=== PATIENT | male | born 1970 | race African-American/Black ===

== ENCOUNTER 2019-12-10 09:35 | Outpatient (CLI) | payer OTHER, SELFPAY ==
[2019-12-10 10:36] LABS: Basophils Percent Auto 0.4 % (0.2-1.2); Eosinophils Absolute Auto 0.2 K/mm3 (0-0.3); Eosinophils Percent Auto 2.9 % (0-4.4); Hematocrit 49.5 % (42.0-52.0); Hemoglobin 16.8 g/dL (14.0-18.0); Immature Granulocyte Absolute 0.02 K/mm3 (0.00-0.031); Immature Granulocyte Percent A 0.2 % (0-0.5); Lymphocytes Percent Auto 27.4 % (18.3-44.2); Mean Corpuscular HGB Conc 33.9 g/dl (32-36); Mean Corpuscular Hemoglobin 28.8 pg (26-34); Mean Corpuscular Volume 84.9 fl (80-100); Mean Platelet Volume 9.3 fl (7.4-10.4); Monocytes Absolute Auto 0.5 K/mm3 (0.1-0.6); Neutrophils Absolute Auto 5.1 K/mm3 (1.3-6.7); Neutrophils Percent Auto 63.1 % (45.5-73.1); Platelet Count Result 209 k/mm3 (150-375); Red Blood Count 5.83 M/mm3 (4.6-6.20); Red Cell Distribution Width 13.1 % (11.5-14.5)
--- NOTE | 2019-12-10 10:36 | ECG_ITS ---
Measurements Intervals [place] Rate: 90 P: 68 HI: 167 QRS: 26 QRSD: 89 T: 50 QT: 337 QTc: 414 Interpretive Statements SINUS RHYTHM EARLY PRECORDIAL R/S TRANSITION BASELINE ARTIFACT- II, III, AVF BORDERLINE ECG Electronically Signed On 12-10-2019 11:12:13 CDT by Lev De Leon D.O.
[2019-12-10 10:46] LABS: INR 1.1
[2019-12-10 10:47] LABS: Partial Thromboplastin Time 28.1 SECONDS (22.3-36.8)
[2019-12-10 10:53] LABS: Alanine Aminotransferase 17 U/L (4-50); Albumin Level 4.7 g/dL (3.5-5.1); Alkaline Phosphatase 68 U/L (38-126); Aspartate Amino Transferase 25 U/L (17-59); Bilirubin,Total 1.5 mg/dL (0.2-1.3); Blood Urea Nitrogen 12 mg/dL (9-20); Calcium 9.9 mg/dL (8.4-10.2); Carbon Dioxide 27 mmol/L (22-30); Chloride 101 mmol/L (98-107); Estimated Glomerular Filt Rate > 60; Glucose 152 mg/dL (75-110); Potassium 4.3 mmol/L (3.4-5.0); Sodium 138 mmol/L (137-145)
[2019-12-10 11:25] LABS: Vitamin D 25 Hydroxy 13.3 ng/mL
[2019-12-10 11:31] LABS: HIV 1/2 Ab P24 Ag Result Negative (Negative)
[2019-12-10 11:37] LABS: Hepatitis B Surface Antigen Negative (Negative)
[2019-12-10 11:42] LABS: Erythrocyte Sedimentation Rate 28 mm/hr (0-20)
[2019-12-10 11:43] LABS: HAV RESULT Negative (Negative); Hepatitis B Core IgM Result Negative (Negative)
[2019-12-10 11:55] LABS: Hepatitis C Virus Antibody Negative (Negative)
== END 2019-12-10 09:36 | disposition home or self-care (01) ==
PROVIDERS: PCP Family Medicine Sports Medicine; Visit Provider Family Medicine Sports Medicine
DX: Z01.818 Encounter for other preprocedural examination (principal); M54.2 Cervicalgia
CPT/HCPCS: 36415; 80053; 80074; 82306; 85025; 85610; 85652; 85730; 86703; 93005; G0432

== ENCOUNTER 2019-12-24 10:49 | Outpatient (CLI) | payer OTHER, SELFPAY ==
[2019-12-24 11:44] LABS: Add Urine Microscopic? NO; Appearance Urine Clear (Clear); Bilirubin Urine Negative (Negative); Blood Urine Negative (Negative); Color Urine Straw (Yellow); Glucose Urine UA Negative (Negative); Ketones Urine Negative (Negative); Leukocyte Esterase Ur Negative LEU/UL (NEGATIVE); Nitrate Urine Negative (Negative); Protein Urine Negative (Negative); Specific Grav Ur 1.012 (1.001-1.035); Urobilinogen Urine Negative mg/dL (<2.0)
[2019-12-24 11:51] LABS: Hemoglobin A1C 10.6 % (<5.7)
== END 2019-12-24 10:50 | disposition home or self-care (01) ==
PROVIDERS: PCP Family Medicine Sports Medicine; Visit Provider Family Medicine Sports Medicine
DX: E11.9 Type 2 diabetes mellitus without complications (principal); Z01.818 Encounter for other preprocedural examination
CPT/HCPCS: 36415; 81003; 83036

== ENCOUNTER 2020-02-22 09:47 | Outpatient (CLI) | payer OTHER, SELFPAY ==
[2020-02-22 10:40] LABS: Hemoglobin A1C 7.2 % (<5.7)
[2020-02-22 10:43] LABS: Glucose 126 mg/dL (75-110)
[2020-02-22 11:14] LABS: Thyroid Stimulating Hormone < 0.015 uIU/mL (0.465-4.680)
== END 2020-02-22 09:48 | disposition home or self-care (01) ==
PROVIDERS: PCP Family Medicine Sports Medicine; Visit Provider Family Medicine Sports Medicine
DX: E11.9 Type 2 diabetes mellitus without complications (principal); E03.9 Hypothyroidism, unspecified
CPT/HCPCS: 36415; 82947; 83036; 84443

== ENCOUNTER 2020-03-20 13:21 | Outpatient (CLI) | payer SELFPAY ==
[2020-03-20 14:20] LABS: Thyroid Stimulating Hormone 0.062 uIU/mL (0.465-4.680)
== END 2020-03-20 13:22 | disposition home or self-care (01) ==
PROVIDERS: PCP Family Medicine Sports Medicine; Visit Provider Family Medicine Sports Medicine
DX: R94.6 Abnormal results of thyroid function studies (principal)
CPT/HCPCS: 36415; 84443

== ENCOUNTER 2020-07-19 10:28 | Outpatient (CLI) | payer OTHER, BC, SELFPAY ==
[2020-07-19 11:41] LABS: Hematocrit 44.6 % (42.0-52.0); Hemoglobin 15.3 g/dL (14.0-18.0); Mean Corpuscular HGB Conc 34.3 g/dl (32-36); Mean Corpuscular Hemoglobin 30.4 pg (26-34); Mean Corpuscular Volume 88.7 fl (80-100); Mean Platelet Volume 9.2 fl (7.4-10.4); Platelet Count Result 181 k/mm3 (150-375); Red Blood Count 5.03 M/mm3 (4.6-6.20); Red Cell Distribution Width 13.2 % (11.5-14.5); White Blood Count 7.8 K/mm3 (4.5-10.0)
[2020-07-19 11:51] LABS: Add Urine Microscopic? NO; Appearance Urine Clear (Clear); Bilirubin Urine Negative (Negative); Blood Urine Negative (Negative); Color Urine Straw (Yellow); Glucose Urine UA Negative (Negative); Ketones Urine Negative (Negative); Leukocyte Esterase Ur Negative LEU/UL (NEGATIVE); Nitrate Urine Negative (Negative); Protein Urine Negative (Negative); Urobilinogen Urine Negative mg/dL (<2.0)
[2020-07-19 11:58] LABS: Partial Thromboplastin Time 27.5 SECONDS (22.3-36.8); Prothrombin Time 13.4 Seconds (11.1-14.7)
[2020-07-19 12:12] LABS: Alanine Aminotransferase 23 U/L (4-50); Alkaline Phosphatase 55 U/L (38-126); Anion Gap 4 mmol/L (8-16); Aspartate Amino Transferase 28 U/L (17-59); Bilirubin,Total 1.3 mg/dL (0.2-1.3); Blood Urea Nitrogen 10 mg/dL (9-20); Carbon Dioxide 28 mmol/L (22-30); Chloride 103 mmol/L (98-107); Estimated Glomerular Filt Rate > 60; Glucose 124 mg/dL (75-110); Potassium 3.9 mmol/L (3.4-5.0); Sodium 135 mmol/L (137-145)
[2020-07-19 12:14] LABS: Erythrocyte Sedimentation Rate 16 mm/hr (0-20)
== END 2020-07-19 10:29 | disposition home or self-care (01) ==
PROVIDERS: PCP Family Medicine Sports Medicine; Visit Provider Family Medicine Sports Medicine
DX: Z01.812 Encounter for preprocedural laboratory examination (principal)
CPT/HCPCS: 36415; 80053; 81003; 85027; 85610; 85652; 85730

== ENCOUNTER 2021-11-07 14:43 | Outpatient (CLI) | payer BC, SELFPAY ==
[2021-11-07 15:07] LABS: Basophils Percent Auto 0.5 % (0.2-1.2); Eosinophils Absolute Auto 0.2 K/mm3 (0-0.3); Eosinophils Percent Auto 2.9 % (0-4.4); Hemoglobin 15.8 g/dL (14.0-18.0); Immature Granulocyte Absolute 0.03 K/mm3 (0.00-0.031); Immature Granulocyte Percent A 0.4 % (0-0.5); Lymphocytes Absolute Auto 2.21 K/mm3 (0.9-3.2); Lymphocytes Percent Auto 26.7 % (18.3-44.2); Mean Corpuscular HGB Conc 33.6 g/dl (32-36); Mean Corpuscular Volume 89.2 fl (80-100); Monocytes Absolute Auto 0.5 K/mm3 (0.1-0.6); Monocytes Percent Auto 5.4 % (2.6-8.5); Neutrophils Absolute Auto 5.3 K/mm3 (1.3-6.7); Neutrophils Percent Auto 64.1 % (45.5-73.1); Platelet Count Result 197 k/mm3 (150-375); Red Blood Count 5.27 M/mm3 (4.6-6.20); Red Cell Distribution Width 12.7 % (11.5-14.5); White Blood Count 8.3 K/mm3 (4.5-10.0)
[2021-11-07 15:37] LABS: Alanine Aminotransferase 37 U/L (6-50); Albumin Level 4.2 g/dL (3.5-5.1); Alkaline Phosphatase 80 U/L (38-126); Anion Gap 5 mmol/L (8-16); Aspartate Amino Transferase 28 U/L (17-59); Bilirubin,Total 1.8 mg/dL (0.2-1.3); Blood Urea Nitrogen 7 mg/dL (9-20); Carbon Dioxide 26 mmol/L (22-30); Chloride 104 mmol/L (98-107); Cholesterol 120 mg/dL (0-200); Estimated Glomerular Filt Rate > 60; Glucose 165 mg/dL (65-110); HDL Direct 46 mg/dL; Potassium 3.9 mmol/L (3.4-5.0); Sodium 135 mmol/L (137-145); Triglycerides 80 mg/dL (<150)
[2021-11-07 15:43] LABS: Hemoglobin A1C 11.2 % (<5.7)
[2021-11-07 15:50] LABS: LDL Cholesterol Direct 53 mg/dL
[2021-11-07 16:31] LABS: Vitamin D 25 Hydroxy 34.2 ng/mL
[2021-11-07 16:49] LABS: Folic Acid 10.9 ng/mL (2.76->20)
== END 2021-11-07 14:44 | disposition home or self-care (01) ==
PROVIDERS: PCP Family Medicine Sports Medicine; Visit Provider Family Medicine Sports Medicine
DX: E78.5 Hyperlipidemia, unspecified (principal); E03.9 Hypothyroidism, unspecified; I10 Essential (primary) hypertension; E11.9 Type 2 diabetes mellitus without complications; Z00.00 Encounter for general adult medical examination without abnormal findings
CPT/HCPCS: 36415; 80053; 80061; 82306; 82607; 82746; 83036; 84443; 85025

== ENCOUNTER 2022-10-10 10:52 | Emergency (ER) | payer OTHER, SELFPAY ==
[2022-10-10 11:08] VITALS: BP 135/82; PULSE 74; RESP 18; TEMP 37; O2SAT 100
[2022-10-10 11:12] LABS: Glucose Point of Care 347 mg/dl (65-105)
[2022-10-10] MEDS: SODIUM CHLORIDE 0.9% IV 1,000 ML 999 ML IV CONT (11:32)
[2022-10-10 11:33] LABS: Basophils Absolute Auto 0.1 K/mm3 (0.0-0.1); Basophils Percent Auto 0.7 % (0.2-1.2); Eosinophils Absolute Auto 0.3 K/mm3 (0-0.3); Eosinophils Percent Auto 3.4 % (0-4.4); Hematocrit 51.3 % (42.0-52.0); Hemoglobin 16.9 g/dL (14.0-18.0); Immature Granulocyte Absolute 0.02 K/mm3 (0.00-0.031); Immature Granulocyte Percent A 0.3 % (0-0.5); Lymphocytes Absolute Auto 2.42 K/mm3 (0.9-3.2); Lymphocytes Percent Auto 31.5 % (18.3-44.2); Mean Corpuscular HGB Conc 32.9 g/dl (32-36); Mean Corpuscular Hemoglobin 29.9 pg (26-34); Mean Corpuscular Volume 90.6 fl (80-100); Mean Platelet Volume 9.8 fl (7.4-10.4); Monocytes Absolute Auto 0.5 K/mm3 (0.1-0.6); Monocytes Percent Auto 6.8 % (2.6-8.5); Neutrophils Absolute Auto 4.4 K/mm3 (1.3-6.7); Neutrophils Percent Auto 57.3 % (45.5-73.1); Platelet Count Result 168 k/mm3 (150-375); Red Blood Count 5.66 M/mm3 (4.6-6.20); Red Cell Distribution Width 13.1 % (11.5-14.5); White Blood Count 7.7 K/mm3 (4.5-10.0)
--- NOTE | 2022-10-10 11:38 | ED.RECABL ---
HPI - Recheck/Abnormal Lab/Rx General Chief Complaint: Recheck/Abnormal Lab/Rx Stated Complaint: blood sugar high Time Seen by Provider: 10/10/22 11:12 History of Present Illness HPI narrative: Patient is a 52-year-old male with a history of type 2 diabetes here due to elevated blood sugars. Patient states that his blood sugars have been running in the 300s at home over the past several days. Today he took his blood sugar and the glucometer read over 600. He contacted his PMD who recommended ED evaluation. Patient feels well today although he has been experiencing intermittent lightheadedness and fatigue for the past several months. His diabetes was previously managed well with Ozempic and metformin, however patient lost his insurance and was off of those meds for several months. He started Jardiance and metformin began about 2 months ago but his sugars have not been well controlled. Previously was on insulin when he was first diagnosed with diabetes in 2010. Related Data Home Medications Medication Instructions Recorded Confirmed glimepiride 4 mg tablet 4 mg PO DAILY 10/10/22 Allergies Allergy/AdvReac Type Severity Reaction Status Date / Time No Known Allergies Allergy Verified 10/10/22 11:18 Review of Systems Review of Systems: Gen: Denies fevers or chills Eyes: Denies eye pain or visual change ENT: Denies congestion Respiratory: Denies shortness of breath or cough CV: Denies chest pain or palpitations GI: Denies abdominal pain nausea, emesis or diarrhea : denies burning, urgency, frequency or hematuria Musculoskeletal: Denies back pain or muscle pain Neuro: Denies numbness, tingling, weakness or focal weakness Skin: Denies rash Except as documented, all other systems reviewed and negative PMFSH Social History Social History Smoking status: Never smoker Alcohol intake: current Exam Narrative: APPEARANCE: Well appearing, no pain in distress, well-nourished. Head: Normocephalic and atraumatic. EYES: PERRLA/EOMI, conjunctivae clear NOSE: No nasal drainage EARS: External ear normal in appearance THROAT: Oropharynx is clear. Mucous membranes are moist. NECK: Supple. No adenopathy, no masses. RESPIRATORY: Airway patent, respirations nonlabored. Clear to auscultation bilaterally, no rales, rhonchi, wheezing. CARDIOVASCULAR: Regular rate and rhythm without murmurs, rubs, or gallops. ABDOMINAL: Normoactive bowel sounds. Soft, nontender, nondistended. No rebound tenderness or guarding. MUSCULOSKELETAL: Extremities are warm and well-perfused. Moves all extremities well. No edema. NEURO: Normal speech. No focal neurologic deficits. SKIN: Skin is warm and dry. No rashes. PSYCHIATRIC: Normal affect/mood.. Course Vital Signs Vital signs: Vital Signs Temperature 98.6 F 10/10/22 11:08 Pulse Rate 74 10/10/22 11:08 Respiratory Rate 18 10/10/22 11:08 Blood Pressure 135/82 10/10/22 11:08 Pulse Oximetry 100 10/10/22 11:08 Oxygen Delivery Room Air 10/10/22 11:08 Temperature 98.6 F 10/10/22 11:08 Pulse Rate 84 10/10/22 14:27 Respiratory Rate 16 10/10/22 14:27 Blood Pressure 129/86 10/10/22 14:27 Pulse Oximetry 99 10/10/22 14:27 Oxygen Delivery Room Air 10/10/22 11:08 MDM - Recheck/Abnormal Lab/Rx MDM Narrative Medical decision making narrative: 52-year-old male with a history of diabetes here for evaluation of elevated blood sugars at home. He is asymptomatic from this. Accu-Chek in triage was 371. Patient was given fluids with improvement of his sugars to 270. Normal anion gap, bicarb is normal, no ketones in the urine to suggest DKA. Spoke with patient's PMD who recommends starting insulin in addition to his metformin. Patient has been on insulin in the past discomfortable with this plan. Discharged home to follow-up, we discussed return precautions. Lab Data 10/10/22 11:25 10/10/22 11:58 Labs: Lab Results
[2022-10-10 11:49] LABS: Beta-Hydroxybutyrate/Acetoacetate 0.28 mmol/L (0.02-0.27)
[2022-10-10 12:17] LABS: Alanine Aminotransferase 35 U/L (6-50); Albumin Level 3.9 g/dL (3.5-5.1); Alkaline Phosphatase 70 U/L (38-126); Anion Gap 7 mmol/L (8-16); Aspartate Amino Transferase 28 U/L (17-59); Bilirubin,Total 1.4 mg/dL (0.2-1.3); Blood Urea Nitrogen 7 mg/dL (9-20); Calcium 8.8 mg/dL (8.4-10.2); Carbon Dioxide 28 mmol/L (22-30); Chloride 99 mmol/L (98-107); Estimated Glomerular Filt Rate > 60; Glucose 344 mg/dL (65-110); Potassium 4.2 mmol/L (3.4-5.0); Sodium 134 mmol/L (137-145)
[2022-10-10 13:02] LABS: Appearance Urine Clear (Clear); Bilirubin Urine Negative (Negative); Blood Urine Negative (Negative); Color Urine Yellow (Yellow); Glucose Urine UA 3+ mg/dL (Negative); Ketones Urine Negative (Negative); Leukocyte Esterase Ur Negative LEU/UL (Negative); Nitrate Urine Negative (Negative); Protein Urine Negative (Negative); pH Urine 6.5 (5.0-9.0)
[2022-10-10 13:03] LABS: Specific Grav Ur 1.043 (1.001-1.035)
[2022-10-10 13:04] LABS: Add Urine Microscopic? NO
[2022-10-10 13:56] LABS: Glucose Point of Care 270 mg/dl (65-105)
[2022-10-10 14:27] VITALS: BP 129/86; PULSE 84; RESP 16; O2SAT 99
== END 2022-10-10 14:28 | disposition home or self-care (01) ==
PROVIDERS: Emergency Provider Physician Assistant; PCP Family Medicine Sports Medicine
DX: E11.65 Type 2 diabetes mellitus with hyperglycemia (principal); Z79.84 Long term (current) use of oral hypoglycemic drugs
CPT/HCPCS: 36415; 80053; 81003; 82010; 82948; 85025; 96360; 99283; J7030

== ENCOUNTER 2022-10-11 17:02 | Emergency (ER) | payer OTHER, SELFPAY ==
[2022-10-11 17:05] VITALS: BP 149/87; PULSE 84; RESP 16; TEMP 36.6; O2SAT 99
[2022-10-11 17:11] LABS: Glucose Point of Care 495 mg/dl (65-105)
--- NOTE | 2022-10-11 17:32 | ED.RECABL ---
HPI - Recheck/Abnormal Lab/Rx General Chief Complaint: Recheck/Abnormal Lab/Rx Stated Complaint: high blood sugar Time Seen by Provider: 10/11/22 17:20 Source: patient and old records reviewed Mode of arrival: ambulatory Limitations: no limitations History of Present Illness HPI narrative: Patient is a 52-year-old male who presents ED with report of elevated blood sugar. Patient reports a history of type 2 diabetes mellitus, currently on metformin and Jardiance with poor blood sugar control, had previously been on insulin. Patient was seen in the ED yesterday for elevated blood sugars, no signs of DKA were noted. Discussion was had with patient's primary care doctor and recommended he start insulin NPH, 10 units SQ daily. Patient has a follow-up appointment with his primary on Friday. He states the insulin was out of stock or not ready at his pharmacy today. Patient has been fatigued today and took a nap. When he woke up he still felt fatigued and groggy, so he decided to come here. His blood sugars were greater than 600 at home. BG upon arrival 495. Patient denies any chest pain, shortness breath, nausea, vomiting, abdominal pain. Related Data Home Medications Medication Instructions Recorded Confirmed glimepiride 4 mg tablet 4 mg PO DAILY 10/10/22 Allergies Allergy/AdvReac Type Severity Reaction Status Date / Time No Known Allergies Allergy Verified 10/10/22 11:18 Review of Systems Review of Systems: CONSTITUTIONAL: Reports fatigue. Denies fever, chills, or sweats. CARDIOVASCULAR: Denies chest pain. RESPIRATORY: Denies dyspnea. GASTROINTESTINAL: Denies abdominal pain, nausea, vomiting. GENITOURINARY: Denies dysuria or hematuria. NEUROLOGIC: See HPI. All systems reviewed & are unremarkable except as noted in HPI and below PMFSH Past Medical History Medical History Type 2 diabetes mellitus with hyperglycemia Surgical History Surgical History No pertinent past surgical history Social History Social History Smoking status: Never smoker Alcohol intake: current Exam Narrative: GENERAL: Well appearing, well-nourished, non-toxic, in no acute distress. HEAD: Normocephalic, atraumatic. NECK: Supple. No adenopathy, no masses. RESPIRATORY: Airway patent, respirations nonlabored. Clear to auscultation bilaterally, no rales, rhonchi, wheezing. CARDIOVASCULAR: Regular rate and rhythm without murmurs, rubs, or gallops. Radial pulses 2+ and equal bilaterally. ABDOMINAL: Soft, nontender, nondistended, no hepatosplenomegaly. Normoactive BS. MUSCULOSKELETAL: Moves all extremities. Strength/ROM intact without gross deformities. SKIN: Warm, dry, normal color. No rashes. NEURO: A&O X3. Speech clear. Cranial nerves II-XII grossly intact. Steady gait. No ataxic movements. PSYCHIATRIC: Appropriate mood and affect. Normal interaction. Course Vital Signs Vital signs: Vital Signs Temperature 97.9 F 10/11/22 17:05 Pulse Rate 84 10/11/22 17:05 Respiratory Rate 16 10/11/22 17:05 Blood Pressure 149/87 H 10/11/22 17:05 Pulse Oximetry 99 10/11/22 17:05 Oxygen Delivery Room Air 10/11/22 17:05 Temperature 97.9 F 10/11/22 17:05 Pulse Rate 68 10/11/22 20:43 Respiratory Rate 18 10/11/22 20:43 Blood Pressure 132/93 H 10/11/22 20:43 Pulse Oximetry 100 10/11/22 20:43 Oxygen Delivery Room Air 10/11/22 17:05 MDM - Recheck/Abnormal Lab/Rx MDM Narrative Medical decision making narrative: Patient presented to ED with elevated blood sugars, was supposed to be started on insulin, but was unable to pick this up from the pharmacy today and returned here. Vitals stable upon arrival. Blood glucose upon arrival 495. Patient given 2L fluids, blood glucose improved to 317. CMP with normal bicarb, no an
[2022-10-11] MEDS: SODIUM CHLORIDE 0.9% IV 1,000 ML 999 ML IV CONT ×2 (17:47→18:18)
[2022-10-11 17:51] LABS: Basophils Percent Auto 0.5 % (0.2-1.2); Eosinophils Absolute Auto 0.3 K/mm3 (0-0.3); Eosinophils Percent Auto 3.7 % (0-4.4); Hematocrit 49.7 % (42.0-52.0); Hemoglobin 16.6 g/dL (14.0-18.0); Immature Granulocyte Absolute 0.02 K/mm3 (0.00-0.031); Immature Granulocyte Percent A 0.3 % (0-0.5); Lymphocytes Absolute Auto 2.05 K/mm3 (0.9-3.2); Lymphocytes Percent Auto 28.1 % (18.3-44.2); Mean Corpuscular HGB Conc 33.4 g/dl (32-36); Mean Corpuscular Hemoglobin 29.6 pg (26-34); Mean Corpuscular Volume 88.8 fl (80-100); Mean Platelet Volume 9.2 fl (7.4-10.4); Monocytes Absolute Auto 0.5 K/mm3 (0.1-0.6); Monocytes Percent Auto 7.3 % (2.6-8.5); Neutrophils Absolute Auto 4.4 K/mm3 (1.3-6.7); Neutrophils Percent Auto 60.1 % (45.5-73.1); Platelet Count Result 170 k/mm3 (150-375); Red Cell Distribution Width 13.1 % (11.5-14.5); White Blood Count 7.3 K/mm3 (4.5-10.0)
[2022-10-11 17:52] LABS: Appearance Urine Clear (Clear); Bilirubin Urine Negative (Negative); Blood Urine Negative (Negative); Color Urine Yellow (Yellow); Glucose Urine UA 3+ mg/dL (Negative); Ketones Urine Negative (Negative); Leukocyte Esterase Ur Negative LEU/UL (Negative); Nitrate Urine Negative (Negative); Protein Urine Negative (Negative); Urobilinogen Urine 0.2 mg/dL (<2.0); pH Urine 5.5 (5.0-9.0)
[2022-10-11 18:04] LABS: Alanine Aminotransferase 36 U/L (6-50); Albumin Level 4.4 g/dL (3.5-5.1); Alkaline Phosphatase 80 U/L (38-126); Anion Gap 9 mmol/L (8-16); Aspartate Amino Transferase 28 U/L (17-59); Bilirubin,Total 1.4 mg/dL (0.2-1.3); Blood Urea Nitrogen 7 mg/dL (9-20); Calcium 9.1 mg/dL (8.4-10.2); Carbon Dioxide 24 mmol/L (22-30); Chloride 97 mmol/L (98-107); Estimated CRCL calculation 116 ml/min; Estimated Glomerular Filt Rate > 60; Glucose 448 mg/dL (65-110); Potassium 4.1 mmol/L (3.4-5.0); Sodium 130 mmol/L (137-145)
[2022-10-11 18:05] LABS: Specific Grav Ur 1.038 (1.001-1.035)
[2022-10-11 18:06] LABS: Add Urine Microscopic? NO
[2022-10-11 18:19] VITALS: BP 132/88; PULSE 67; RESP 18; O2SAT 98
[2022-10-11 20:19] LABS: Glucose Point of Care 317 mg/dl (65-105)
--- NOTE | 2022-10-11 20:19 | PC.NURSE ---
POC glucose recheck after fluid bolus 317. Kady RAMIREZ notified.
[2022-10-11] MEDS: INSULIN ASPART (*BKC) 100 UNITS/ML 6 UNITS SUB-Q (20:41)
[2022-10-11 20:43] VITALS: BP 132/93; PULSE 68; RESP 18; O2SAT 100
== END 2022-10-11 21:09 | disposition home or self-care (01) ==
PROVIDERS: Emergency Provider Physician Assistant; PCP Family Medicine Sports Medicine
DX: E11.65 Type 2 diabetes mellitus with hyperglycemia (principal); Z79.84 Long term (current) use of oral hypoglycemic drugs
CPT/HCPCS: 36415; 80053; 81003; 82948; 85025; 96360; 96361; 99283; J1815; J7030

== ENCOUNTER 2024-01-30 17:15 | Emergency (ER) | payer OTHER, SELFPAY ==
--- NOTE | ~2024-01-30 | XR_ITS ---
EXAMINATION: XR chest 2V DATE: 01/30/2024 17:52 INDICATION: Cough and wheezing. Shortness of breath. TECHNIQUE: Frontal and lateral views of the chest were obtained. COMPARISON: None. FINDINGS: There is elevation of left hemidiaphragm. There is mild atelectasis at left lung base. No p leural effusion or pneumothorax. The heart size is normal. There are disc replacements in cervical sp ine. IMPRESSION: 1. Elevation of left hemidiaphragm with mild atelectasis at left lung base. Reviewed, dictated and finalized at location A.
--- NOTE | 2024-01-30 17:29 | ED.URI ---
HPI - URI/Sore Throat General Chief Complaint: Upper Respiratory Infection Stated Complaint: Flu Like symthoms Time Seen by Provider: 01/30/24 17:29 Source: patient Mode of arrival: ambulatory Limitations: no limitations History of Present Illness HPI Narrative: 54 yo M presents with c/o cough, chest and nasal congestion, fatigue for 4 days. Afebrile. Taking OTC dayquil/nyquil cold and flu. reports intermittent headaches and chills. Denies nausea vomiting diarrhea. Denies chest pain or shortness breath. Reports decreased urination. Has only urinated approximately 3 times today. States he has low back pain but this is chronic for him. No other urinary symptoms. All systems reviewed and negative except as noted above. Related Data Home Medications Medication Instructions Recorded Confirmed glimepiride 4 mg tablet 4 mg PO DAILY 10/10/22 01/30/24 albuterol sulfate 90 mcg/actuation 2 puff inhalation PRN PRN 01/30/24 01/30/24 aerosol inhaler Shortness Of Breath Or Wheezing atorvastatin 20 mg tablet 20 mg PO DAILY 01/30/24 01/30/24 blood-glucose sensor (FreeStyle 01/30/24 01/30/24 Hudson 3 Sensor device) levothyroxine 125 mcg tablet 125 mcg PO DAILY 01/30/24 01/30/24 metformin 500 mg tablet,extended 1,000 mg PO BID 01/30/24 01/30/24 release 24 hr pioglitazone 45 mg tablet 45 mg PO DAILY 01/30/24 01/30/24 semaglutide 0.25 mg or 0.5 mg (2 0.5 mg subcut WEEKLY 01/30/24 01/30/24 mg/3 mL) subcutaneous pen injector (Ozempic) Allergies Allergy/AdvReac Type Severity Reaction Status Date / Time No Known Allergies Allergy Verified 01/30/24 17:22 Review of Systems Review of Systems: CONSTITUTIONAL: Denies fever . Reports chills, or sweats. Reports fatigue. EYES: Denies visual changes, redness, or discharge. ENT: reports rhinorrhea, congestion. Denies sore throat, or otalgia. CARDIOVASCULAR: Denies chest pain, palpitations, or edema. RESPIRATORY: reports cough. Denies dyspnea. GASTROINTESTINAL: Denies abdominal pain, nausea, vomiting, or diarrhea. GENITOURINARY: Denies dysuria or hematuria. reports decreased urine output. SKIN: Denies rash or itching. MUSCULOSKELETAL: Denies back pain, joint pain, or myalgia. NEUROLOGIC: Denies headache, numbness, or weakness. PSYCHIATRIC: Denies anxiety or depression. All other systems reviewed are negative, except as documented in HPI. [facility] Past Medical History Medical History Type 2 diabetes mellitus with hyperglycemia Surgical History Surgical History No pertinent past surgical history Social History Social History Smoking status: Never smoker Alcohol intake: current Comments At time of signature, agree with nursing past medical, surgical, social and family history. There is no relevant family history pertinent to the presenting complaint. Exam Narrative: GENERAL: This is a well-nourished, well-developed patient, Patient ill-appearing but in no acute distress HEAD: normocephalic, atraumatic. EYES: PERRL. Sclera clear/white. Vision is grossly intact. EARS: External ears normal, auditory canals clear and without drainage, TMs normal without perforation. Hearing grossly intact. NOSE: External nose normal with mild nasal congestion, clear nasal drainage with erythema to bilateral nares THROAT: Mucous membranes moist, posterior pharynx clear. NECK: Neck supple, non-tender without lymphadenopathy, masses or thyromegaly. CARDIOVASCULAR: Regular rate and rhythm without murmurs, gallops, or rubs. RESPIRATORY: decreased in lower lower ribs otherwise clear Breath sounds equal bilaterally. No wheezes, rales, or rhonchi. SKIN: warm, Dry, intact with no suspicious lesions or rash, good texture and turgor. NEURO: awake, alert, and oriented to person, place and time. There were no o
[2024-01-30 17:30] VITALS: BP 139/88; PULSE 117; RESP 15; TEMP 36.9; O2SAT 99
[2024-01-30 17:44] LABS: EDINFLUASCREEN Negative (Negative); EDINFLUBSCREEN Negative (Negative)
[2024-01-30 19:34] LABS: Glucose Point of Care 222 mg/dl (65-105)
== END 2024-01-30 19:34 | disposition home or self-care (01) ==
PROVIDERS: Emergency Provider Nurse Practitioner Family
DX: J06.9 Acute upper respiratory infection, unspecified (principal); R34 Anuria and oliguria; Z20.822 Contact with and (suspected) exposure to COVID-19; E11.9 Type 2 diabetes mellitus without complications; Z79.84 Long term (current) use of oral hypoglycemic drugs
CPT/HCPCS: 71046; 82948; 87426; 87804; 99213; G0463

== ENCOUNTER 2024-02-03 10:29 | Emergency (ER) | payer OTHER, SELFPAY ==
--- NOTE | ~2024-02-03 | XR_ITS ---
XR chest 2V Ordering provider: Alanis Wood MD History: 54 years Male with . weak INCREASED H.R. COUGH FEVER . Comparison: January 30, 2024 FINDINGS: MEDIASTINUM: The cardiac silhouette is not enlarged. Elevation of the left hemidiaphragm. LUNGS: No infiltrates, effusions or pneumothorax. Minimal atelectatic changes in the left lung base. OTHER: No free air under the diaphragm. Degenerative spine. IMPRESSION: Chronic atelectatic changes in the left lung base. Otherwise, no acute cardiopulmonary pathology Reviewed, dictated and finalized at location A. IMPRESSION: Chronic atelectatic changes in the left lung base. Otherwise, no acute cardiopu lmonary pathology
[2024-02-03 10:34] VITALS: BP 125/87; PULSE 111; RESP 22; TEMP 37; O2SAT 96
--- NOTE | 2024-02-03 10:34 | PC.NURSE ---
Pt reports last tylenol intake was 0300
--- NOTE | 2024-02-03 11:39 | ECG_ITS ---
Test Date: 2024-02-03 11:57:24 Measurements Intervals [place] Rate: 94 P: 55 DC: 140 QRS: 31 QRSD: 135 T: 31 QT: 350 QTc: 440 Interpretive Statements SINUS RHYTHM RIGHT BUNDLE BRANCH BLOCK BASELINE ARTIFACT- I, III, AVR, AVL, AVF ABNORMAL ECG No previous ECG available for comparison Electronically Signed On 02-03-2024 12:02:23 CDT by Lev De Leon D.O.
[2024-02-03 12:04] VITALS: PULSE 93
[2024-02-03 12:07] VITALS: BP 129/93; PULSE 91; RESP 20; TEMP 36.8; O2SAT 100
--- NOTE | 2024-02-03 12:09 | PC.NURSE ---
pt made aware we need urine sample. pt unable to go at this time. declining straight cath.
[2024-02-03 12:17] LABS: Basophils Percent Auto 0.3 % (0.2-1.2); Eosinophils Percent Auto 0.2 % (0-4.4); Hematocrit 45.6 % (42.0-52.0); Hemoglobin 15.4 g/dL (14.0-18.0); Immature Granulocyte Absolute 0.07 K/mm3 (0.00-0.031); Immature Granulocyte Percent A 0.6 % (0-0.5); Lymphocytes Absolute Auto 1.53 K/mm3 (0.9-3.2); Lymphocytes Percent Auto 13.7 % (18.3-44.2); Mean Corpuscular HGB Conc 33.8 g/dl (32-36); Mean Corpuscular Hemoglobin 29.8 pg (26-34); Mean Corpuscular Volume 88.2 fl (80-100); Mean Platelet Volume 8.8 fl (7.4-10.4); Monocytes Absolute Auto 1.8 K/mm3 (0.1-0.6); Monocytes Percent Auto 15.9 % (2.6-8.5); Neutrophils Absolute Auto 7.7 K/mm3 (1.3-6.7); Neutrophils Percent Auto 69.3 % (45.5-73.1); Platelet Count Result 211 k/mm3 (150-375); Red Blood Count 5.17 M/mm3 (4.6-6.20); Red Cell Distribution Width 12.1 % (11.5-14.5); White Blood Count 11.2 K/mm3 (4.5-10.0)
[2024-02-03 12:30] LABS: Alanine Aminotransferase 27 U/L (6-50); Albumin Level 4.2 g/dL (3.5-5.1); Alkaline Phosphatase 83 U/L (38-126); Anion Gap 10 mmol/L (4-12); Aspartate Amino Transferase 36 U/L (17-59); Bilirubin,Total 1.5 mg/dL (0.2-1.3); Blood Urea Nitrogen 13 mg/dL (9-20); Calcium 9.3 mg/dL (8.4-10.2); Carbon Dioxide 30 mmol/L (22-30); Chloride 90 mmol/L (98-107); Estimated CRCL calculation 84 ml/min; Estimated Glomerular Filt Rate > 60; Glucose 234 mg/dL (65-110); Potassium 4.4 mmol/L (3.4-5.0); Sodium 130 mmol/L (137-145)
[2024-02-03] MEDS: SODIUM CHLORIDE 0.9% IV 1,000 ML 999 ML IV CONT (13:20)
[2024-02-03 13:42] LABS: Lactic Acid Reflex 1.5 mmol/L (0.7-2.0)
[2024-02-03 13:54] LABS: Troponin I < 0.012 ng/mL (0.000-0.034)
[2024-02-03 14:08] LABS: Influenza A QL RT-PCR Negative (Negative); Influenza B QL RT-PCR Negative (Negative); RSV RNA, RT-PCR Negative (Negative); SARS-CoV-2 RNA PCR Negative (Negative)
[2024-02-03 14:15] VITALS: BP 142/96; PULSE 86; RESP 24; O2SAT 97
[2024-02-03 14:16] LABS: Procalcitonin 0.2 ng/mL
[2024-02-03 15:00] LABS: Add Urine Microscopic? YES; Appearance Urine Clear (Clear); Bacteria Urine None Seen /hpf; Bilirubin Urine 1+ (Negative); Blood Urine Negative (Negative); Color Urine Dark Yellow (Yellow); Glucose Urine UA Trace mg/dL (Negative); Ketones Urine 2+ mg/dL (Negative); Leukocyte Esterase Ur Negative LEU/UL (Negative); Nitrate Urine Negative (Negative); Non Pathogenic Casts 0-2; Protein Urine 2+ mg/dL (Negative); RBC Urine 0-2 /hpf (0-2); Specific Grav Ur 1.026 (1.001-1.035); Squamous Epithelial Cell Urine None Seen /hpf (Few); WBC Urine 0-5 /hpf (0-3); pH Urine 5.5 (5.0-9.0)
[2024-02-03 16:39] VITALS: BP 128/88; PULSE 91; RESP 29; O2SAT 98
--- NOTE | 2024-02-03 17:08 | ED.GENADULT ---
HPI - General Adult General Chief complaint: Weakness Stated complaint: weakness Time Seen by Provider: 02/03/24 12:49 History of Present Illness HPI narrative: Patient is a 54-year-old gentleman presents emergency department with chief complaint of generalized weakness and increased heart rate. The patient apparently has had a cough and generalized body aches for the last several days the patient went to his primary care provider and heart rate was increased and Related Data Home Medications Medication Instructions Recorded Confirmed glimepiride 4 mg tablet 4 mg PO DAILY 10/10/22 01/30/24 albuterol sulfate 90 mcg/actuation 2 puff inhalation PRN PRN 01/30/24 01/30/24 aerosol inhaler Shortness Of Breath Or Wheezing atorvastatin 20 mg tablet 20 mg PO DAILY 01/30/24 01/30/24 blood-glucose sensor (FreeStyle 01/30/24 01/30/24 Hudson 3 Sensor device) levothyroxine 125 mcg tablet 125 mcg PO DAILY 01/30/24 01/30/24 metformin 500 mg tablet,extended 1,000 mg PO BID 01/30/24 01/30/24 release 24 hr pioglitazone 45 mg tablet 45 mg PO DAILY 01/30/24 01/30/24 semaglutide 0.25 mg or 0.5 mg (2 0.5 mg subcut WEEKLY 01/30/24 01/30/24 mg/3 mL) subcutaneous pen injector (Ozempic) Allergies Allergy/AdvReac Type Severity Reaction Status Date / Time No Known Allergies Allergy Verified 02/03/24 12:04 Review of Systems Review of Systems: A 10 system review of systems was completed on the patient and is negative except for what is stated in the HPI. Nursing and ancillary documentation was reviewed. [facility] Past Medical History Medical History Type 2 diabetes mellitus with hyperglycemia Surgical History Surgical History No pertinent past surgical history Social History Social History Smoking status: Never smoker Alcohol intake: current Exam Narrative: GENERAL: Well-appearing, well-nourished, and in no acute distress. HEAD: Normocephalic, atraumatic. EYES: PERRLA and EOMI. ENT: Nares clear, no rhinorrhea or epistaxis. Mucous membranes moist. NECK: Supple. CHEST: Clear to auscultation. No respiratory distress. HEART: Regular rate and rhythm. No murmur heard. Normal peripheral pulses. ABDOMEN: Soft, nontender, nondistended, normal active bowel sounds. EXTREMITIES: Normal range of motion. No edema. SKIN: Warm, dry, no rash. NEURO: No focal deficits. Alert and oriented x3. PSYCH: Normal mood and affect. Course Vital Signs Vital signs: Vital Signs Temperature 37.0 C 02/03/24 10:34 Pulse Rate 111 H 02/03/24 10:34 Respiratory Rate 22 H 02/03/24 10:34 Blood Pressure 125/87 02/03/24 10:34 Pulse Oximetry 96 02/03/24 10:34 Temperature 36.8 C 02/03/24 12:07 Pulse Rate 94 02/03/24 17:36 Respiratory Rate 20 02/03/24 17:36 Blood Pressure 125/84 02/03/24 17:36 Pulse Oximetry 98 02/03/24 17:36 Medical Decision Making MDM Narrative Medical decision making narrative: Differential diagnosis includes viral illness, pneumonia, sepsis, upper respiratory infection, COVID, flu, RSV, Vital Signs Vital Signs: Vital Signs Temperature 37.0 C 02/03/24 10:34 Pulse Rate 111 H 02/03/24 10:34 Respiratory Rate 22 H 02/03/24 10:34 Blood Pressure 125/87 02/03/24 10:34 Pulse Oximetry 96 02/03/24 10:34 Temperature 36.8 C 02/03/24 12:07 Pulse Rate 94 02/03/24 17:36 Respiratory Rate 20 02/03/24 17:36 Blood Pressure 125/84 02/03/24 17:36 Pulse Oximetry 98 02/03/24 17:36 Lab Data 02/03/24 12:01 02/03/24 12:01 Labs: Lab Results 02/03/24 02/03/24 02/03/24 Range/Units 12:01 13:18 13:19 WBC 11.2 H (4.5-10.0) K/mm3 RBC 5.17 (4.6-6.20) M/mm3 Hgb 15.4 (14.0-18.0) g/dL Hct 45.6 (42.0-52.0) % MCV 88.2 (8
[2024-02-03 17:36] VITALS: BP 125/84; PULSE 94; RESP 20; O2SAT 98
== END 2024-02-03 17:37 | disposition home or self-care (01) ==
PROVIDERS: Student in an Organized Health Care Education/Training Program; Emergency Provider Emergency Medicine
DX: B34.9 Viral infection, unspecified (principal); Z20.822 Contact with and (suspected) exposure to COVID-19; E11.9 Type 2 diabetes mellitus without complications; Z79.85 Long-term (current) use of injectable non-insulin antidiabetic drugs; Z79.84 Long term (current) use of oral hypoglycemic drugs; Z79.899 Other long term (current) drug therapy; I45.10 Unspecified right bundle-branch block
CPT/HCPCS: 36415; 71046; 80053; 81001; 83605; 84145; 84484; 85025; 87637; 93005; 96360; 99284; J7030

== ENCOUNTER 2025-03-28 11:01 | Emergency (ER) | payer MEDICARE, SELFPAY ==
[2025-03-28] VITALS (20 sets, daily range): BP systolic 130–143; BP diastolic 90–103; PULSE 78–113; RESP 15–20; TEMP 36.7; O2SAT 99–100
--- NOTE | ~2025-03-28 | CT_ITS ---
EXAM: CT abdomen pelvis w contrast INDICATION: Diffuse pain. Nausea and vomiting. COMPARISONS: CT from 2007 PROCEDURE: 100 mL of Isovue 300 was injected IV. Enteric contrast given. Dose reduction technique(s) used. FINDINGS: Lower chest: There is elevation of the left hemidiaphragm with subsequent left basilar atelectasis. Body wall: No abnormality demonstrated. ABDOMEN: Liver: Normal size and homogeneous parenchyma. Gallbladder: No calcified gallstones. No bile duct dilatation. Spleen: There is a small low-density structure which is superficial in location and has peripheral calcification. This is of uncertain etiology, but is thought to be benign. Adrenals: Normal. Pancreas: No mass or adjacent stranding. Normal caliber duct. Kidneys: No calculus, mass or hydronephrosis. Aorta: Normal caliber. IVC: Normal. Retroperitoneum: No adenopathy. Stomach and visualized esophagus: No abnormality. PELVIS: Reproductive Organs: No pelvic mass. Bladder: No nodule or calculus. Colon: No focal wall thickening or paracolic fat stranding. Small Bowel: No dilatation or wall thickening. Appendix: Normal. Mesentery: No adenopathy. Normal splanchnic veins. Peritoneum: No free fluid or free air. Bones: No destructive lesion. Other: There is a mass in the medial, superior right thigh. It is mostly fatty attenuation, but it is heterogeneous. It is intramuscular There are some very coarse calcifications present. It measures 9.3 x 5.3 x 7.4 cm. IMPRESSION: Mass in the right thigh as described. This is of uncertain etiology, but a liposarcoma should be considered. Reviewed, dictated and finalized at location A. UNTING FILE CLERK IMPRESSION: Mass in the right thigh as described. This is of uncertain etiology, but a lipo sarcoma should be considered.
[2025-03-28] MEDS: SODIUM CHLORIDE 0.9% IV 1,000 ML 999 ML IV CONT ×2 (12:01→13:36)
[2025-03-28] MEDS: ONDANSETRON INJ 4 MG/2 ML VIAL IV PUSH (12:02)
[2025-03-28] MEDS: FAMOTIDINE 20 MG/2 ML VIAL IV PUSH (12:03)
[2025-03-28 12:05] LABS: Hematocrit 53.4 % (42.0-52.0); Hemoglobin 18.0 g/dL (14.0-18.0); Immature Granulocyte Percent A 0.2 % (0-0.5); Lymphocytes Absolute Auto 2.38 K/mm3 (0.9-3.2); Mean Corpuscular HGB Conc 33.7 g/dl (32-36); Mean Corpuscular Hemoglobin 30.2 pg (26-34); Mean Corpuscular Volume 89.6 fl (80-100); Nucleated Red Blood Cells Absolute Auto 0.000 K/mm3 (0.0-0.012); Nucleated Red Blood Cells Perc 0.0 % (0.0-0.2); Platelet Count Result 199 k/mm3 (150-375); Red Blood Count 5.96 M/mm3 (4.6-6.20); White Blood Count 9.7 K/mm3 (4.5-10.0)
--- NOTE | 2025-03-28 12:12 | ED.NAVMDI ---
HPI - Nausea/Vomiting/Diarrhea General Chief complaint: Nausea/Vomiting/Diarrhea Stated complaint: Nausea/vomiting since Friday Time Seen by Provider: 03/28/25 11:46 Source: patient Mode of arrival: ambulatory Limitations: no limitations History of Present Illness HPI Narrative: Patient is a 55-year-old male who presents the ED with report of nausea and vomiting. Patient reports he has had persistent nausea and vomiting since Friday. Has not eaten since Friday. Reports he is now only vomiting up bile. Unable to keep down any food or drink. Was seen by his primary care doctor today and sent to the ED for IV fluids. Reports some diffuse abdominal discomfort yesterday, denies significant pain currently. Did have some diarrhea. Denies constipation. Denies fevers. Denies family members with similar symptoms. Related Data Home Medications ?Medication ?Instructions ?Recorded ?Confirmed ?Last Taken ?Type glimepiride 4 mg tablet 4 mg PO DAILY 10/10/22 01/30/24 Unknown History albuterol sulfate 90 mcg/actuation 2 puff inhalation PRN PRN 01/30/24 01/30/24 Unknown History aerosol inhaler Shortness Of Breath Or Wheezing atorvastatin 20 mg tablet 20 mg PO DAILY 01/30/24 01/30/24 Unknown History blood-glucose sensor (FreeStyle 01/30/24 01/30/24 Unknown History Hudson 3 Sensor device) levothyroxine 125 mcg tablet 125 mcg PO DAILY 01/30/24 01/30/24 Unknown History metformin 500 mg tablet,extended 1,000 mg PO BID 01/30/24 01/30/24 Unknown History release 24 hr pioglitazone 45 mg tablet 45 mg PO DAILY 01/30/24 01/30/24 Unknown History semaglutide 0.25 mg or 0.5 mg (2 0.5 mg subcut WEEKLY 01/30/24 01/30/24 Unknown History mg/3 mL) subcutaneous pen injector (Ozempic) Allergies Allergy/AdvReac Type Severity Reaction Status Date / Time No Known Allergies Allergy Verified 03/28/25 12:00 Review of Systems Review of Systems: All systems reviewed & are unremarkable except as noted in HPI. All systems reviewed & are unremarkable except as noted in HPI and below PMFSH Past Medical History Medical History Type 2 diabetes mellitus with hyperglycemia Surgical History Surgical History No pertinent past surgical history Social History Social History Smoking status: Never smoker Alcohol intake: current Exam Narrative: GENERAL: Well appearing, well-nourished, non-toxic, in no acute distress. HEAD: Normocephalic, atraumatic. RESPIRATORY: Airway patent, respirations nonlabored. Clear to auscultation bilaterally, no rales, rhonchi, wheezing. CARDIOVASCULAR: Borderline tachycardic with regular rhythm without murmurs, rubs, or gallops. ABDOMINAL: Soft, no significant focal tenderness, nondistended. Normoactive BS. MUSCULOSKELETAL: Moves all extremities. No gross deformities. SKIN: Warm, dry, normal color. NEURO: A&O X3. Speech clear. No ataxic movements. PSYCHIATRIC: Appropriate mood and affect. Normal interaction. Course Vital Signs Vital signs: Vital Signs Temperature 98.0 F 03/28/25 11:06 Pulse Rate 113 H 03/28/25 11:06 Respiratory Rate 20 03/28/25 11:06 Blood Pressure 143/96 H 03/28/25 11:06 Pulse Oximetry 99 03/28/25 11:06 Oxygen Delivery Room Air 03/28/25 11:06 Temperature 98.0 F 03/28/25 11:06 Pulse Rate 78 03/28/25 13:34 Respiratory Rate 16 03/28/25 13:34 Blood Pressure 139/100 H 03/28/25 13:34 Pulse Oximetry 100 03/28/25 13:34 Oxygen Delivery Room Air 03/28/25 11:06 MDM - Nausea/Vomiting/Diarrhea MDM Narrative Medical decision making narrative: Patient presented to ED with nausea, vomiting for the past 2 days. Patient mildly tachycardic upon arrival, in no acute distress. Afebrile. Sent from primary care doctor for IV fluids. Cbc without leukocytosis or anemia. Likely hemoconcentration with elevated hemoglobin. Fluids are ongoing. CMP with minimal anion gap of 14. Normal bicarb. Normal kidney function. Otherwise stable electrolytes. Blood glucose minimally elevated to 161. Total bilirubin slightly elevated to 2.8, though otherwise normal LFTs and lipase. He does seem to have a chronic hyperbilirubinemia. UA w/ evidence of dehydration, no signs of infection. CT abd/pelvis obtained and without acute intra-abdominal findings. Does show intramuscular mass of the right medial thigh, [id number], recommended to rule out liposarcoma. On exam, unable to palpate mass. Discussed case with Dr. Garrett, orthopedics, recommended f/u with [facility] ortho oncology. Discussed case with Dr. Riggs, orthopedic oncology @ [facility], advised to have patient f/u for further eval and more imaging. Call office to make appointment. Discussed lab and imaging findings, follow-up for thigh mass. Patient is feeling improved with supportive therapy. Able to tolerate p.o. intake. Discussed high likelihood of gastroenteritis. Will discharge with [facility]. Feel he is otherwise safe for discharge home. Discussed strict return precautions. Patient in agreement plan, voiced understanding of return precautions. Discharged in stable condition. Medical Records Attestation: I reviewed the patient's medical records. Lab Data Attestation: I reviewed the patient's lab results. 03/28/25 11:56 03/28/25 11:56 Labs: Lab Results 03/28/25 03/28/25 Range/Units 11:56 13:33 WBC 9.7 (4.5-10.0) K/mm3 RBC 5.96 (4.6-6.20) M/mm3 Hgb 18.0 (14.0-18.0) g/dL Hct 53.4 H (42.0-52.0) % MCV 89.6 (80-100) fl MCH 30.2 (26-34) pg MCHC 33.7 (32-36) g/dl RDW 12.8 (11.5-14.5) % Plt Count 199 (150-375) k/mm3 MPV 8.9 (7.4-10.4) fl Immature Gran % (Auto) 0.2 (0-0.5) % Neut % (Auto) 67.7 (45.5-73.1) % Lymph % (Auto) 24.5 (18.3-44.2) % Crowley % (Auto) 6.6 (2.6-8.5) % Eos % (Auto) 0.7 (0-4.4) % Baso % (Auto) 0.3 (0.2-1.2) % Lymph # (Auto) 2.38 (0.9-3.2) K/mm3 Crowley # (Auto) 0.6 (0.1-0.6) K/mm3 Eos # (Auto) 0.1 (0-0.3) K/mm3 Baso # (Auto) 0.0 (0.0-0.1) K/mm3 Abs Immat Gran (auto) 0.02 (0.00-0.031) K/mm3 Absolute Neuts (auto) 6.6 (1.3-6.7) K/mm3 Absolute Nucleated RBC 0.000 (0.0-0.012) K/mm3 Nucleated RBC % 0.0 (0.0-0.2) % Sodium 136 L (137-145) mmol/L Potassium 3.9 (3.4-5.0) mmol/L Chloride 97 L (98-107) mmol/L Carbon Dioxide 25 (22-30) mmol/L Anion Gap 14 H (4-12) mmol/L BUN 11 (9-20) mg/dL Creatinine 1.10 (0.7-1.3) mg/dL Estim Creat Clear Calc 81 ml/min Estimated GFR > 60 (59 - ) Glucose 161 H (65-110) mg/dL Calcium 10.0 (8.4-10.2) mg/dL Total Bilirubin 2.8 H (0.2-1.3) mg/dL AST 40 (17-59) U/L ALT 31 (6-50) U/L Alkaline Phosphatase 75 (38-126) U/L Total Protein 8.8 H (6.3-8.2) g/dL Albumin 5.0 (3.5-5.1) g/dL Lipase 72 (23-300) U/L Urine Color Yellow (Yellow) Urine Appearance Clear (Clear) Urine pH 5.0 (5.0-9.0) Ur Specific [place] > 1.045 H (1.001-1.035) Urine Protein Trace (Negative) mg/dL Urine Glucose (UA) Negative (Negative) mg/dL Urine Ketones 2+ H (Negative) mg/dL Ur Blood (Man) Negative (Negative) Urine Nitrate Negative (Negative) Urine Bilirubin Negative (Negative) Urine Urobilinogen 0.2 (<2.0) mg/dL Leukocyte Esterase Rfl Negative (Negative) LEIDA/UL Urine RBC 0-2 (0-2) /hpf Urine WBC 0-5 (0-3) /hpf Ur Squamous Epith Cells None seen (Few) /hpf Urine Bacteria None seen /hpf Urine Casts 0-2 Imaging Data Attestation: I personally reviewed and interpreted this imaging study as follows: Radiologist's impression: ITS Impressions Abdomen/Pelvis CT 03/28/25 12:40 IMPRESSION: Mass in the right thigh as described. This is of uncertain etiology, but a liposarcoma should be considered. Discharge Plan Discharge Clinical Impression: Gastroenteritis, Mass of right thigh Patient Disposition: Home Condition: Stable Instructions: Antibiotic Form, Clear Liquid Diet (ED), Gastroenteritis (ED), Acute Nausea and Vomiting (ED) Additional Instructions: Utilize zofran as needed for further nausea. Recommend Tylenol, Bentyl as needed for abdominal discomfort. Increase fluid intake. Recommend electrolyte rich fluids, gatorade, pedialyte, body armour. Recommend clear liquids or bland diet until symptoms improve, such as bananas, rice, applesauce, toast, or crackers. Follow up with your primary care doctor for further evaluation. Return to the ED if you experience worsening or severe symptoms, unable to keep down food or drink, severe pain, fevers, rectal bleeding, vomiting blood, or any other symptoms of concern. Your imaging showed evidence of a mass within your right thigh muscle. You will need further workup for this. Recommend follow-up with [facility] for this: [phone]. Call office to make appointment. Take CD imaging disc with you to appointment. Patient Language: Tajik Prescriptions: New dicyclomine 20 mg tablet 20 mg PO TID PRN (Reason: Abdominal Discomfort) Qty: 15 0RF ondansetron 4 mg tablet,disintegrating 4 mg PO Q8H PRN (Reason: nausea and vomiting) Qty: 15 0RF No Action atorvastatin 20 mg tablet 20 mg PO DAILY pioglitazone 45 mg tablet 45 mg PO DAILY levothyroxine 125 mcg tablet 125 mcg PO DAILY albuterol sulfate 90 mcg/actuation HFA aerosol inhaler 2 puff INHALATION PRN PRN (Reason: Shortness Of Breath Or Wheezing) metformin 500 mg tablet extended release 24 hr 1,000 mg PO BID (DME) FreeStyle Hudson 3 Sensor Device MISCELLANEOUS Ozempic 0.25 mg or 0.5 mg (2 mg/3 mL) pen injector 0.5 mg SUBCUT WEEKLY amoxicillin-pot clavulanate 875-125 mg tablet 1 tablet PO Q12H 7 Days Qty: 14 0RF glimepiride 4 mg Tablet 4 mg PO DAILY Follow-up/Referrals: Pina,Milind Duggan MD [Primary Care Provider, Unknown] Time of Disposition: 14:32
[2025-03-28 12:16] LABS: Alanine Aminotransferase 31 U/L (6-50); Albumin Level 5.0 g/dL (3.5-5.1); Alkaline Phosphatase 75 U/L (38-126); Anion Gap 14 mmol/L (4-12); Aspartate Amino Transferase 40 U/L (17-59); Bilirubin,Total 2.8 mg/dL (0.2-1.3); Blood Urea Nitrogen 11 mg/dL (9-20); Calcium 10.0 mg/dL (8.4-10.2); Carbon Dioxide 25 mmol/L (22-30); Chloride 97 mmol/L (98-107); Estimated CRCL calculation 81 ml/min; Estimated Glomerular Filt Rate > 60; Glucose 161 mg/dL (65-110); Lipase 72 U/L (23-300); Potassium 3.9 mmol/L (3.4-5.0); Sodium 136 mmol/L (137-145); Total Protein 8.8 g/dL (6.3-8.2)
--- OUTSIDE RECORDS SUMMARY | 2025-03-28 12:30 | XMS_ITS | Clinical Summary ---
Author Organization [facility] Address [address] [place] [address] Care Team Providers Care Cutting Table Operator Name Role Phone Brooklyn Goode MD Unavailable Glenn Salmon MD Primary Care Provider [phone] Allergies Active Allergy Reactions Criticality Noted Date Comments Cat Dander Medications pravastatin (PRAVACHOL) 80 mg tablet 80 mg daily 07/15/2016 Active metFORMIN (GLUCOPHAGE) 1,000 mg tablet 1,000 mg 2 (two) times a day Active levothyroxine (SYNTHROID, LEVOTHROID) 150 mcg tablet daily Active blood glucose diagnostic (ONETOUCH ULTRA BLUE TEST STRIP) strip Rx: OneTouch Ultra Test - Strip, TAKE: TESTS TWICE A DAY, REFILLS: 0 Active cyclobenzaprine (FLEXERIL) 10 mg tablet 10 mg 3 (three) times a day Active HYDROcodone-rachele taminophen (NORCO) 5-325 mg per tablet 5-325 mg every 6 (six) hours Active insulin degludec (TRESIBA FLEXTOUCH U-100) 100 unit/mL (3 mL) insulin pen daily 06/25/2017 Active insulin lispro (HumaLOG KwikPen Insulin) 100 unit/mL insulin pen Rx: Humalog KwikPen 100 UNIT/ML Solution Pen-injector Active pioglitazone (ACTOS) 45 mg tablet Take 45 mg by mouth daily 04/24/2020 Active SF 5000 Plus 1.1 % cream USE IN PLACE OF REGULAR TOOTHPASTE. USE TWICE DAILY. DO NOT SWALLOW. 04/19/2020 Active semaglutide (Ozempic) 0.25 mg or 0.5 mg(2 mg/1.5 mL) pen injector Inject 0.25 mg under the skin every 7 days Active Active Problems Problem Noted Date Diagnosed Date Normal eye exam 07/27/2020 Assessment & Plan (07/27/2020 2:29 PM TELEPRINTER): DFE today Refractive error 07/27/2020 Assessment & Plan (07/27/2020 2:30 PM TELEPRINTER): Minimal changes to MRx, New SRx PRN Asteroid hyalosis of left eye 07/27/2020 Assessment & Plan (07/27/2020 2:29 PM TELEPRINTER): Educated on findings NVS, monitor. RTC 1 Year or PRN with visual acuity (VA) changes Diabetes mellitus type 2 without retinopathy 08/2020 Assessment & Plan (07/27/2020 2:29 PM TELEPRINTER): No background diabetic retinopathy (TOOL KEEPER) No neovascularization of the disc (NVD), neovascularization elsewhere (NVE), NVI, CSME both eyes (OU) Strict BG control, monitor yearly Annual physical exam 12/21/2018 Diabetes mellitus type 2, controlled 01/16/2016 Overview (12/21/2018): Managed by Dr Yeboah Hyperlipidemia associated with type 2 diabetes felipe bedolla 01/16/2016 Overview (12/21/2018): On pravastatin Hypertension associated with diabetes 01/16/2016 Chronic bilateral low back pain with bilateral s ciatica 01/16/2016 Overview (12/21/2018): 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 Was on the ground and the ladder fell back and flung him back and landed on a spray can in his back pocket in 02/07/2016. Injured since. Sustained injury to lower back, neck and shoulder. Postoperative hypothyroidism Overview (12/21/2018): History of goiter Resolved Problems Problem Noted Date Diagnosed Date Resolved Date Anxiety 08/23/2016 12/21/2018 Depression 08/23/2016 12/21/2018 Low back pain 01/16/2016 12/21/2018 Goiter 04/08/2014 12/21/2018 Immunizations Immunization Administration Dates Next Due Influenza, Quadrivalent, Spl it, Preservative Free, Intramuscular 02/05/2017 Influenza, Unspecified 06/25/2014 Tdap 06/17/2016,12/05/2004 Surgical History Surgery Date Site/Laterality Comments IR FINE NEEDLE ASPIRATION W IMAGE GUIDANCE 04/27/2014 N/A IR FINE NEEDLE ASPIRATION W IMAGE GUIDANCE 04/27/2014 N/A THYROIDECTOMY UMBILICAL HERNIA REPAIR WISDOM TOOTH EXTRACTION NECK SURGERY SHOULDER SURGERY Left Medical History Medical History Date Comments Diabetes mellitus type 2, controlled Hypertension Hyperlipidemia Postoperative hypothyroidism Overweight Cervical disc disease Anxiety 08/23/2016 Depression 08/23/2016 Low back pain 01/16/2016 Goiter 04/08/2014 Family History Medical History Relation Name Comments Cancer Father Diabetes Father Hypertension Father Glaucoma Neg Hx Macular degeneration Neg Hx Retinal detachment Neg Hx Thyroid disease Neg Hx Relation Name Status Comments Father Mother Alive Social History Tobacco Use Types Packs/Day Years Used Date Smoking Tobacco: Never Assessed Sex and Gender Information Value Date Recorded Sex Assigned at Not on file Legal Sex Male 10:51 AM TELEPRINTER Gender Identity Not on file Sexual Orientation Not on file Last Filed Vital Signs Vital Sign Reading Time Taken Comments Blood Pressure 124/84 07/01/2018 1:15 PM TELEPRINTER Pulse 115 07/01/2018 1:15 PM TELEPRINTER Temperature 36.7 C (98 F) 06/22/2016 12:51 PM TELEPRINTER Respiratory Rate - - Oxygen Saturation 97% 07/01/2018 1:15 PM TELEPRINTER Inhaled Oxygen Concentration - - Weight 107.5 kg (237 lb) 07/01/2018 1:15 PM TELEPRINTER Height 195.6 cm (6' 5) 07/01/2018 1:15 PM TELEPRINTER Body Mass Index 28.1 07/01/2018 1:15 PM TELEPRINTER Plan of Treatment Not on file Insurance [employer] Care Teams Cutting Table Operator Relationship Specialty Start Date End Date Glenn Salmon MD [address] [place] [address] PCP - General Family Medicine 07/12/20 Brooklyn Goode MD Consulting Physician Pain Management 12/21/18
--- OUTSIDE RECORDS SUMMARY | 2025-03-28 12:30 | XMS_ITS | Encounter Summary ---
Author Organization [facility] Facility Care Team Providers Care Director Government Name Role Phone Unknown, Notinfile Primary Care Provider Unavail able Debbie Meza MD Primary Care Provider + [phone] Brooklyn Goode MD Unavailable [phone] Glenn Salmon MD Primary Care Provider [phone] Encounter Details Date Type Department Care Team (Latest Contact Info) Description 07/12/2016 Orders Only [facility] CLINCONV ProviderPatricia MD [address] [place] [id number] Social History Tobacco Use Types Packs/Day Years Used Date Smoking Tobacco: Never Assessed Sex and Gender Information Value Date Recorded Sex Assigned at Not on file Legal Sex Male 10:51 AM PROFESSIONAL BUILDER Gender Identity Not on file Sexual Orientation Not on file documented as of this encounter Plan of Treatment Not on file documented as of this encounter Procedures Procedure Name Priority Date/Time Associated Diagnosis Comments PROCEDURE - RESULT 07/16/2016 12 :00 AM PROFESSIONAL BUILDER documented in this encounter Results * PROCEDURE - RESULT (07/16/2016 12:00 AM PROFESSIONAL BUILDER) Narrative 07/16/2016 12:00 AM PROFESSIONAL BUILDER Ordered by an unspecified provider. Historical Provider Final Res ult documented in this encounter Visit Diagnoses Not on filedocumented in this encounter Care Teams Director Government Relationship Specialty Start Date End Date Unknown, Sam PCP - General 09/29/17 12/20/18 Debbie Meza MD [address] [place] [address] PCP - General Internal Medicine 12/21/18 07/11/20 Glenn Salmon MD [address] [place] [address] PCP - General Family Medicine 07/12/20 Brooklyn Goode MD [address] [address] Consulting Physician Pain Management 12/21/18 documented as of this encounter
--- OUTSIDE RECORDS SUMMARY | 2025-03-28 12:30 | XMS_ITS | Encounter Summary ---
Author Organization [facility] Facility Care Team Providers Care Starch Crab Name Role Phone Unknown, Notinfile Primary Care Provider Unavail able Debbie Meza MD Primary Care Provider + [phone] Brooklyn Goode MD Unavailable [phone] Glenn Salmon MD Primary Care Provider [phone] Encounter Details Date Type Department Care Team (Latest Contact Info) Description 06/16/2017 Orders Only [facility] CLINCONV ProviderPatricia MD [address] [place] [address] Social History Tobacco Use Types Packs/Day Years Used Date Smoking Tobacco: Never Assessed Sex and Gender Information Value Date Recorded Sex Assigned at Not on file Legal Sex Male 10:51 AM MARKETING AND PROMOTIONS MANAGER Gender Identity Not on file Sexual Orientation Not on file documented as of this encounter Plan of Treatment Not on file documented as of this encounter Procedures Procedure Name Priority Date/Time Associated Diagnosis Comments CARDIOLOGY REPORT 06/16/2017 12: 00 AM MARKETING AND PROMOTIONS MANAGER documented in this encounter Results * CARDIOLOGY REPORT (06/16/2017 12:00 AM MARKETING AND PROMOTIONS MANAGER) Anatomical Region Laterality Modality Other Narrative 06/16/2017 12:00 AM MARKETING AND PROMOTIONS MANAGER Ordered by an unspecified provider. Historical Provider [facility] SHAHANA ALVA Final Result documented in this encounter Visit Diagnoses Not on filedocumented in this encounter Care Teams Starch Crab Relationship Specialty Start Date End Date Unknown, Notilisa PCP - General 09/29/17 12/20/18 Debbie Meza MD [address] [address] PCP - General Internal Medicine 12/21/18 07/11/20 Glenn Salmon MD [address] [place] [address] PCP - General Family Medicine 07/12/20 Brooklyn Goode MD [address] [address] Consulting Physician Pain Management 12/21/18 documented as of this encounter
--- OUTSIDE RECORDS SUMMARY | 2025-03-28 12:30 | XMS_ITS | Encounter Summary ---
Author Organization [facility] Facility Care Team Providers Care Diesel Engine Pipe Fitter Name Role Phone Unknown, Notinfile Primary Care Provider Unavail able Debbie Meza MD Primary Care Provider + [phone] Brooklyn Goode MD Unavailable [phone] Glenn Salmon MD Primary Care Provider [phone] Encounter Details Date Type Department Care Team (Latest Contact Info) Description 06/19/2016 Orders Only [facility] CLINCONV ProviderPatricia MD [address] [place] [address] Social History Tobacco Use Types Packs/Day Years Used Date Smoking Tobacco: Never Assessed Sex and Gender Information Value Date Recorded Sex Assigned at Not on file Legal Sex Male 10:51 AM SLITTER HELPER Gender Identity Not on file Sexual Orientation Not on file documented as of this encounter Plan of Treatment Not on file documented as of this encounter Procedures Procedure Name Priority Date/Time Associated Diagnosis Comments SCAN - LABS 06/19/2016 12:00 AM SLITTER HELPER documented in this encounter Results * SCAN - LABS (06/19/2016 12:00 AM SLITTER HELPER) Narrative 06/19/2016 12:00 AM SLITTER HELPER Ordered by an unspecified provider. Historical Provider Final Res ult documented in this encounter Visit Diagnoses Not on filedocumented in this encounter Care Teams Diesel Engine Pipe Fitter Relationship Specialty Start Date End Date Unknown, Sam PCP - General 09/29/17 12/20/18 Debbie Meza MD [address] [place] [address] PCP - General Internal Medicine 12/21/18 07/11/20 Glenn Salmon MD [address] [place] [address] PCP - General Family Medicine 07/12/20 Brooklyn Goode MD [address] [address] Consulting Physician Pain Management 12/21/18 documented as of this encounter
--- OUTSIDE RECORDS SUMMARY | 2025-03-28 12:30 | XMS_ITS | Encounter Summary ---
Author Organization [facility] Facility Care Team Providers Care Telecommunications Clerk Name Role Phone Unknown, Notinfile Primary Care Provider Unavail able Debbie Meza MD Primary Care Provider + [phone] Brooklyn Goode MD Unavailable [phone] Glenn Salmon MD Primary Care Provider [phone] Encounter Details Date Type Department Care Team (Latest Contact Info) Description 06/26/2017 Orders Only [facility] CLINCONV ProviderPatricia MD [address] [place] [address] Social History Tobacco Use Types Packs/Day Years Used Date Smoking Tobacco: Never Assessed Sex and Gender Information Value Date Recorded Sex Assigned at Not on file Legal Sex Male 10:51 AM ORACLE DEVELOPER Gender Identity Not on file Sexual Orientation Not on file documented as of this encounter Plan of Treatment Not on file documented as of this encounter Procedures Procedure Name Priority Date/Time Associated Diagnosis Comments SCAN - LABS 06/30/2017 12:00 AM ORACLE DEVELOPER documented in this encounter Results * SCAN - LABS (06/30/2017 12:00 AM ORACLE DEVELOPER) Narrative 06/30/2017 12:00 AM ORACLE DEVELOPER Ordered by an unspecified provider. Historical Provider Final Res ult documented in this encounter Visit Diagnoses Not on filedocumented in this encounter Care Teams Telecommunications Clerk Relationship Specialty Start Date End Date Unknown, Sam PCP - General 09/29/17 12/20/18 Debbie Meza MD [address] [place] [address] PCP - General Internal Medicine 12/21/18 07/11/20 Glenn Salmon MD [address] [place] [address] PCP - General Family Medicine 07/12/20 Brooklyn Goode MD [address] [address] Consulting Physician Pain Management 12/21/18 documented as of this encounter
--- OUTSIDE RECORDS SUMMARY | 2025-03-28 12:30 | XMS_ITS | Encounter Summary ---
Author Organization [facility] Facility Care Team Providers Care Glove Cleaner Name Role Phone Unknown, Notinfile Primary Care Provider Unavail able Debbie Meza MD Primary Care Provider + [phone] Brooklyn Goode MD Unavailable [phone] Glenn Salmon MD Primary Care Provider [phone] Encounter Details Date Type Department Care Team (Latest Contact Info) Description 05/07/2017 Orders Only [facility] CLINCONV ProviderPatricia MD [address] [place] [address] Social History Tobacco Use Types Packs/Day Years Used Date Smoking Tobacco: Never Assessed Sex and Gender Information Value Date Recorded Sex Assigned at Not on file Legal Sex Male 10:51 AM PROFILE GRINDER Gender Identity Not on file Sexual Orientation Not on file documented as of this encounter Plan of Treatment Not on file documented as of this encounter Procedures Procedure Name Priority Date/Time Associated Diagnosis Comments CARDIOLOGY REPORT 05/08/2017 12: 00 AM PROFILE GRINDER documented in this encounter Results * CARDIOLOGY REPORT (05/08/2017 12:00 AM PROFILE GRINDER) Anatomical Region Laterality Modality Other Narrative 05/08/2017 12:00 AM PROFILE GRINDER Ordered by an unspecified provider. Historical Provider [facility] SHAHANA ALVA Final Result documented in this encounter Visit Diagnoses Not on filedocumented in this encounter Care Teams Glove Cleaner Relationship Specialty Start Date End Date Unknown, Notilisa PCP - General 09/29/17 12/20/18 Debbie Meza MD [address] [address] PCP - General Internal Medicine 12/21/18 07/11/20 Glenn Salmon MD [address] [place] [address] PCP - General Family Medicine 07/12/20 Brooklyn Goode MD [address] [address] Consulting Physician Pain Management 12/21/18 documented as of this encounter
--- OUTSIDE RECORDS SUMMARY | 2025-03-28 12:30 | XMS_ITS | Encounter Summary ---
Author Organization [facility] Facility Care Team Providers Care Metal Mockup Maker Name Role Phone Unknown, Notinfile Primary Care Provider Unavail able Debbie Meza MD Primary Care Provider + [phone] Brooklyn Goode MD Unavailable [phone] Glenn Salmon MD Primary Care Provider [phone] Encounter Details Date Type Department Care Team (Latest Contact Info) Description 01/28/2014 Orders Only [facility] CLINCONV ProviderPatricia MD [address] [place] [phone] Social History Tobacco Use Types Packs/Day Years Used Date Smoking Tobacco: Never Assessed Sex and Gender Information Value Date Recorded Sex Assigned at Not on file Legal Sex Male 10:51 AM GENERAL PURCHASING AGENT Gender Identity Not on file Sexual Orientation Not on file documented as of this encounter Plan of Treatment Not on file documented as of this encounter Procedures Procedure Name Priority Date/Time Associated Diagnosis Comments SCAN - LABS 06/19/2016 12:00 AM GENERAL PURCHASING AGENT documented in this encounter Results * SCAN - LABS (06/19/2016 12:00 AM GENERAL PURCHASING AGENT) Narrative 06/19/2016 12:00 AM GENERAL PURCHASING AGENT Ordered by an unspecified provider. Historical Provider Final Res ult documented in this encounter Visit Diagnoses Not on filedocumented in this encounter Care Teams Metal Mockup Maker Relationship Specialty Start Date End Date Unknown, Sam PCP - General 09/29/17 12/20/18 Debbie Meza MD [address] [place] [address] PCP - General Internal Medicine 12/21/18 07/11/20 Glenn Salmon MD [address] [place] [address] PCP - General Family Medicine 07/12/20 Brooklyn Goode MD [address] [address] Consulting Physician Pain Management 12/21/18 documented as of this encounter
--- OUTSIDE RECORDS SUMMARY | 2025-03-28 13:35 | XMS_ITS | Encounter Summary ---
Author Organization [facility] Facility Care Team Providers Care Trashman Name Role Phone Unknown, Notinfile Primary Care Provider Unavail able Debbie Meza MD Primary Care Provider + [phone] Broolkyn Goode MD Unavailable [phone] Glenn Salmon MD Primary Care Provider [phone] Encounter Details Date Type Department Care Team (Latest Contact Info) Description 05/07/2017 Orders Only [facility] CLINCONV ProviderPatricia MD [address] [place] [address] Social History Tobacco Use Types Packs/Day Years Used Date Smoking Tobacco: Never Assessed Sex and Gender Information Value Date Recorded Sex Assigned at Not on file Legal Sex Male 10:51 AM K 9 POLICE OFFICER Gender Identity Not on file Sexual Orientation Not on file documented as of this encounter Plan of Treatment Not on file documented as of this encounter Procedures Procedure Name Priority Date/Time Associated Diagnosis Comments CARDIOLOGY REPORT 05/08/2017 12: 00 AM K 9 POLICE OFFICER documented in this encounter Results * CARDIOLOGY REPORT (05/08/2017 12:00 AM K 9 POLICE OFFICER) Anatomical Region Laterality Modality Other Narrative 05/08/2017 12:00 AM K 9 POLICE OFFICER Ordered by an unspecified provider. Historical Provider [facility] SHAHANA ALVA Final Result documented in this encounter Visit Diagnoses Not on filedocumented in this encounter Care Teams Trashman Relationship Specialty Start Date End Date Unknown, Notilisa PCP - General 09/29/17 12/20/18 Debbie Meza MD [address] [address] PCP - General Internal Medicine 12/21/18 07/11/20 Glenn Salmon MD [address] [place] [address] PCP - General Family Medicine 07/12/20 Brooklyn Goode MD [address] [address] Consulting Physician Pain Management 12/21/18 documented as of this encounter
--- OUTSIDE RECORDS SUMMARY | 2025-03-28 13:35 | XMS_ITS | Encounter Summary ---
Author Organization [facility] Facility Care Team Providers Care Cash Application Clerk Name Role Phone Unknown, Notinfile Primary Care Provider Unavail able Debbie Meza MD Primary Care Provider + [phone] Brooklyn Goode MD Unavailable [phone] Glenn Salmon MD Primary Care Provider [phone] Encounter Details Date Type Department Care Team (Latest Contact Info) Description 06/19/2016 Orders Only [facility] CLINCONV ProviderPatricia MD [address] [place] [address] Social History Tobacco Use Types Packs/Day Years Used Date Smoking Tobacco: Never Assessed Sex and Gender Information Value Date Recorded Sex Assigned at Not on file Legal Sex Male 10:51 AM BIOSTATISTICS DIRECTOR Gender Identity Not on file Sexual Orientation Not on file documented as of this encounter Plan of Treatment Not on file documented as of this encounter Procedures Procedure Name Priority Date/Time Associated Diagnosis Comments SCAN - LABS 06/19/2016 12:00 AM BIOSTATISTICS DIRECTOR documented in this encounter Results * SCAN - LABS (06/19/2016 12:00 AM BIOSTATISTICS DIRECTOR) Narrative 06/19/2016 12:00 AM BIOSTATISTICS DIRECTOR Ordered by an unspecified provider. Historical Provider Final Res ult documented in this encounter Visit Diagnoses Not on filedocumented in this encounter Care Teams Cash Application Clerk Relationship Specialty Start Date End Date Unknown, Sam PCP - General 09/29/17 12/20/18 Debbie Meza MD [address] [place] [address] PCP - General Internal Medicine 12/21/18 07/11/20 Glenn Salmon MD [address] [place] [address] PCP - General Family Medicine 07/12/20 Brooklyn Goode MD [address] [address] Consulting Physician Pain Management 12/21/18 documented as of this encounter
--- OUTSIDE RECORDS SUMMARY | 2025-03-28 13:35 | XMS_ITS | Encounter Summary ---
Author Organization [facility] Facility Care Team Providers Care Identification Printing Machine Setter Name Role Phone Unknown, Notinfile Primary Care Provider Unavail able Debbie Meza MD Primary Care Provider + [phone] Brooklyn Goode MD Unavailable [phone] Glenn Salmon MD Primary Care Provider [phone] Encounter Details Date Type Department Care Team (Latest Contact Info) Description 01/28/2014 Orders Only [facility] CLINCONV ProviderPatricia MD [address] [place] [address] Social History Tobacco Use Types Packs/Day Years Used Date Smoking Tobacco: Never Assessed Sex and Gender Information Value Date Recorded Sex Assigned at Not on file Legal Sex Male 10:51 AM CLAY PIGEON LOADER Gender Identity Not on file Sexual Orientation Not on file documented as of this encounter Plan of Treatment Not on file documented as of this encounter Procedures Procedure Name Priority Date/Time Associated Diagnosis Comments SCAN - LABS 06/19/2016 12:00 AM CLAY PIGEON LOADER documented in this encounter Results * SCAN - LABS (06/19/2016 12:00 AM CLAY PIGEON LOADER) Narrative 06/19/2016 12:00 AM CLAY PIGEON LOADER Ordered by an unspecified provider. Historical Provider Final Res ult documented in this encounter Visit Diagnoses Not on filedocumented in this encounter Care Teams Identification Printing Machine Setter Relationship Specialty Start Date End Date Unknown, Sam PCP - General 09/29/17 12/20/18 Debbie Meza MD [address] [place] [address] PCP - General Internal Medicine 12/21/18 07/11/20 Glenn Salmon MD [address] [place] [address] PCP - General Family Medicine 07/12/20 Brooklyn Goode MD [address] [address] Consulting Physician Pain Management 12/21/18 documented as of this encounter
--- OUTSIDE RECORDS SUMMARY | 2025-03-28 13:35 | XMS_ITS | Encounter Summary ---
Author Organization [facility] Facility Care Team Providers Care Brake Lining Maker Name Role Phone Unknown, Notinfile Primary Care Provider Unavail able Debbie Meza MD Primary Care Provider + [phone] Brooklyn Goode MD Unavailable [phone] Glenn Salmon MD Primary Care Provider [phone] Encounter Details Date Type Department Care Team (Latest Contact Info) Description 06/16/2017 Orders Only [facility] CLINCONV ProviderPatricia MD [address] [place] [address] Social History Tobacco Use Types Packs/Day Years Used Date Smoking Tobacco: Never Assessed Sex and Gender Information Value Date Recorded Sex Assigned at Not on file Legal Sex Male 10:51 AM STICK ROLLER Gender Identity Not on file Sexual Orientation Not on file documented as of this encounter Plan of Treatment Not on file documented as of this encounter Procedures Procedure Name Priority Date/Time Associated Diagnosis Comments CARDIOLOGY REPORT 06/16/2017 12: 00 AM STICK ROLLER documented in this encounter Results * CARDIOLOGY REPORT (06/16/2017 12:00 AM STICK ROLLER) Anatomical Region Laterality Modality Other Narrative 06/16/2017 12:00 AM STICK ROLLER Ordered by an unspecified provider. Historical Provider [facility] SHAHANA ALVA Final Result documented in this encounter Visit Diagnoses Not on filedocumented in this encounter Care Teams Brake Lining Maker Relationship Specialty Start Date End Date Unknown, Notilisa PCP - General 09/29/17 12/20/18 Debbie Meza MD [address] [address] PCP - General Internal Medicine 12/21/18 07/11/20 Glenn Salmon MD [address] [place] [address] PCP - General Family Medicine 07/12/20 Brooklyn Goode MD [address] [address] Consulting Physician Pain Management 12/21/18 documented as of this encounter
--- OUTSIDE RECORDS SUMMARY | 2025-03-28 13:35 | XMS_ITS | Clinical Summary ---
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 RTC 1 Year or PRN with visual acuity (VA) changes Diabetes mellitus type 2 without retinopathy 08/2020 Assessment & Plan (07/27/2020 2:29 PM BOX PACKER): No background diabetic retinopathy (FRONT COUNTER ATTENDANT) No neovascularization of the disc (NVD), neovascularization [...] on file Legal Sex Male 10:51 AM BOX PACKER Gender Identity Not on file Sexual Orientation Not on file Last Filed Vital Signs Vital Sign Reading Time Taken Comments Blood Pressure 124/84 07/01/2018 1:15 PM BOX PACKER Pulse 115 07/01/2018 1:15 PM BOX PACKER Temperature 36.7 C (98 F) 06/22/2016 12:51 PM BOX PACKER Respiratory Rate - - Oxygen Saturation 97% 07/01/2018 1:15 PM BOX PACKER Inhaled Oxygen Concentration - - Weight 107.5 kg (237 lb) 07/01/2018 1:15 PM BOX PACKER Height 195.6 cm (6' 5) 07/01/2018 1:15 PM BOX PACKER Body Mass Index 28.1 07/01/2018 1:15 PM BOX PACKER Plan of Treatment Not on file Insurance [employer] Care Teams Orthopedic Nurse Relationship Specialty Start Date End Date Glenn Salmon MD [address] [place] [address] PCP - General Family Medicine 07/12/20 Brooklyn Goode MD Consulting Physician Pain Management 12/21/18
--- OUTSIDE RECORDS SUMMARY | 2025-03-28 13:35 | XMS_ITS | Encounter Summary ---
Author Organization [facility] Facility Care Team Providers Care Certified Nurse Aide Name Role Phone Unknown, Notinfile Primary Care Provider Unavail able Debbie Meza MD Primary Care Provider + [phone] Brooklyn Goode MD Unavailable [phone] Glenn Salmon MD Primary Care Provider [phone] Encounter Details Date Type Department Care Team (Latest Contact Info) Description 07/12/2016 Orders Only [facility] CLINCONV ProviderPatricia MD [address] [place] [address] Social History Tobacco Use Types Packs/Day Years Used Date Smoking Tobacco: Never Assessed Sex and Gender Information Value Date Recorded Sex Assigned at Not on file Legal Sex Male 10:51 AM INTERNAL GRINDER TENDER Gender Identity Not on file Sexual Orientation Not on file documented as of this encounter Plan of Treatment Not on file documented as of this encounter Procedures Procedure Name Priority Date/Time Associated Diagnosis Comments PROCEDURE - RESULT 07/16/2016 12 :00 AM INTERNAL GRINDER TENDER documented in this encounter Results * PROCEDURE - RESULT (07/16/2016 12:00 AM INTERNAL GRINDER TENDER) Narrative 07/16/2016 12:00 AM INTERNAL GRINDER TENDER Ordered by an unspecified provider. Historical Provider Final Res ult documented in this encounter Visit Diagnoses Not on filedocumented in this encounter Care Teams Certified Nurse Aide Relationship Specialty Start Date End Date Unknown, Sam PCP - General 09/29/17 12/20/18 Debbie Meza MD [address] [place] [address] PCP - General Internal Medicine 12/21/18 07/11/20 Glenn Salmon MD [address] [place] [address] PCP - General Family Medicine 07/12/20 Brooklyn Goode MD [address] [address] Consulting Physician Pain Management 12/21/18 documented as of this encounter
--- OUTSIDE RECORDS SUMMARY | 2025-03-28 13:35 | XMS_ITS | Encounter Summary ---
Author Organization [facility] Facility Care Team Providers Care Refrigeration Insulator Name Role Phone Unknown, Notinfile Primary Care Provider Unavail able Debbie Meza MD Primary Care Provider + [phone] Brooklyn Goode MD Unavailable [phone] Glenn Salmon MD Primary Care Provider [phone] Encounter Details Date Type Department Care Team (Latest Contact Info) Description 06/26/2017 Orders Only [facility] CLINCONV ProviderPatricia MD [address] [place] [address] Social History Tobacco Use Types Packs/Day Years Used Date Smoking Tobacco: Never Assessed Sex and Gender Information Value Date Recorded Sex Assigned at Not on file Legal Sex Male 10:51 AM EXECUTIVE SECRETARY Gender Identity Not on file Sexual Orientation Not on file documented as of this encounter Plan of Treatment Not on file documented as of this encounter Procedures Procedure Name Priority Date/Time Associated Diagnosis Comments SCAN - LABS 06/30/2017 12:00 AM EXECUTIVE SECRETARY documented in this encounter Results * SCAN - LABS (06/30/2017 12:00 AM EXECUTIVE SECRETARY) Narrative 06/30/2017 12:00 AM EXECUTIVE SECRETARY Ordered by an unspecified provider. Historical Provider Final Res ult documented in this encounter Visit Diagnoses Not on filedocumented in this encounter Care Teams Refrigeration Insulator Relationship Specialty Start Date End Date Unknown, Sam PCP - General 09/29/17 12/20/18 Debbie Meza MD [address] [place] [address] PCP - General Internal Medicine 12/21/18 07/11/20 Glenn Salmon MD [address] [place] [address] PCP - General Family Medicine 07/12/20 Brooklyn Goode MD [address] [address] Consulting Physician Pain Management 12/21/18 documented as of this encounter
[2025-03-28 13:48] LABS: Add Urine Microscopic? YES; Appearance Urine Clear (Clear); Glucose Urine UA Negative (Negative); Leukocyte Esterase Ur Negative LEU/UL (Negative); Nitrate Urine Negative (Negative); Non Pathogenic Casts 0-2; Specific Grav Ur > 1.045 (1.001-1.035)
== END 2025-03-28 15:02 | disposition home or self-care (01) ==
PROVIDERS: Emergency Provider Physician Assistant; PCP Family Medicine
DX: K52.9 Noninfective gastroenteritis and colitis, unspecified (principal); R22.41 Localized swelling, mass and lump, right lower limb; E11.9 Type 2 diabetes mellitus without complications; Z79.84 Long term (current) use of oral hypoglycemic drugs
CPT/HCPCS: 36415; 74177; 80053; 81001; 83690; 85025; 96361; 96374; 96375; 99284; J2405; J7030; Q9967